=== PATIENT | female | born 2000 | race American Indian/Alaskan Native ===

== ENCOUNTER 2020-07-01 00:23 | Outpatient (CLI) | payer MEDICAID ==
[2020-07-01 00:56] VITALS: BP 115/75
== END 2020-07-01 04:00 | disposition home or self-care (01) ==
LOC: TRG 00:23 → APU 00:33 → TRG 04:00
PROVIDERS: ATTEND Obstetrics & Gynecology
DX: O47.1 False labor at or after 37 completed weeks of gestation (principal); Z3A.38 38 weeks gestation of pregnancy
CPT/HCPCS: 59025

== ENCOUNTER 2021-05-02 22:35 | Outpatient (CLI) | payer MEDICAID ==
[2021-05-02 23:21] VITALS: BP 96/67
[2021-05-02] MEDS ORDERED: LACTATED RINGERS 1,000 ML IV ONE (23:21)
[2021-05-02 23:46] LABS: Bacteria,Urine 3+ /HPF (Negative); Bilirubin,Urine NEG (Negative); Blood,Urine SM (Negative); Color,Urine Yellow (Yellow); Hyaline Casts,Urine 1 /LPF; Mucus,Urine FEW /HPF; Protein,Urine <15 mg/dL mg/dL (Negative); Urobilinogen,Urine < 2.0 mg/dL (<2.0)
[2021-05-03] MEDS ORDERED: ceFAZolin/NS 1 GM/50 ML 1 GM/50 ML BAG IV ONE (00:13)
== END 2021-05-03 01:15 | disposition home or self-care (01) ==
LOC: TRG 22:35 → APU 22:37 → TRG 05-03 01:15
PROVIDERS: ATTEND Obstetrics & Gynecology
DX: O47.02 False labor before 37 completed weeks of gestation, second trimester (principal); Z3A.25 25 weeks gestation of pregnancy
CPT/HCPCS: 81001; 87086; J0690; J7120